=== PATIENT | male | born 1955 | race Caucasian/White ===

== ENCOUNTER 2017-03-02 12:28 | Emergency (ER) | payer MEDICARE, OTHER ==
[2017-03-02 12:29] VITALS: BMI 31.9
[2017-03-02] MEDS ORDERED: Iohexol 240 (50 ml) PO STA (13:32)
[2017-03-02] MEDS ORDERED: Sodium Chloride 0.9% 1,000 ML IV ONE (13:32)
[2017-03-02] MEDS ORDERED: Morphine 4 MG/ML VIAL ONE (13:40)
[2017-03-02] MEDS ORDERED: Iohexol 240 (50 ml) ONE (13:40)
[2017-03-02] MEDS ORDERED: Sodium Chloride 0.9% 1,000 ML ONE (13:41)
--- NOTE | 2017-03-02 13:51 | C.PDOC ---
History Of Present Illness 61-year-old male, presents to the emergency department with complaints of 2-day duration of intermittent headache, that is described as a sharp electric-shock like pain to the right side of his head. Patient states he is worried because she stopped taking her blood pressure meds. Patient notes that he checked her pressure and it was high. No headache at present. No shortness of breath or chest pain. Patient notes that he stopped taking meds due to palpitations, but did not mention this to his doctor. No other complaints at this time. Time Seen by Provider: 03/02/17 13:24 Chief Complaint (Nursing): Abdominal Pain History Per: Patient History/Exam Limitations: no limitations Past Medical History Reviewed: Historical Data, Nursing Documentation, Vital Signs Vital Signs: Last Vital Signs Temp 98 F 03/02/17 17:40 Pulse 60 03/02/17 17:40 Resp 18 03/02/17 17:40 BP 135/86 03/02/17 17:40 Pulse Ox 99 03/02/17 19:42 - Medical History PMH: Arthritis, Back Problems, Diverticulitis, HTN, Hypercholesterolemia, Malignancy (PROSTATE CANCER), TIA Surgical History: Endoscopy - [facility] Procedures INTRAVASCULAR PRESSURE MEASUREMENT OF CORONARY ARTERIES (07/29/14) LEFT HEART CARDIAC CATH (07/14/14) LT HEART ANGIOCARDIOGRAM (07/29/14) Family History: States: No Known Family Hx - Social History Hx Tobacco Use: No Hx Alcohol Use: No Hx Substance Use: No Review Of Systems Except As Marked, All Systems Reviewed And Found Negative. Constitutional: Negative for: Fever, Chills Cardiovascular: Negative for: Chest Pain Respiratory: Negative for: Shortness of Breath Gastrointestinal: Negative for: Nausea, Vomiting Neurological: Positive for: Headache. Negative for: Weakness, Numbness, Dizziness Physical Exam - Physical Exam Appears: Non-toxic, No Acute Distress Skin: Warm, Dry, No Rash Head: Atraumatic, Normacephalic Eye(s): bilateral: Normal Inspection, PERRL, EOMI Nose: Normal Oral Mucosa: Moist Lips: Normal Appearing Neck: Normal ROM Cardiovascular: Rhythm Regular, No Murmur Respiratory: Normal Breath Sounds Gastrointestinal/Abdominal: Soft, No Tenderness Extremity: Normal ROM Neurological/Psych: Oriented x3, Normal Speech ED Course And Treatment - Laboratory Results Result Diagrams: 03/02/17 13:52 03/02/17 13:52 O2 Sat by Pulse Oximetry: 99 - CT Scan/US abd Other Rad Studies (CT/US): Radiology Report Reviewed CT/US Interpretation: IMPRESSION: Findings consistent with acute diverticulitis of the left colon. Interval development of lytic lesion at L5 measures approximately 6 mm. Additional new faintly sclerotic foci are noted throughout the spine including L4, L2, T12, etc. In this patient with absent prostate gland, correlate with medical history and nuclear medicine bone scan in order to assess for metastatic disease. Enlarged retroperitoneal and to lesser extent mediastinal lymph nodes. Periaortic lymph nodes measure up to 14 mm in short axis. Additional incidental findings as above. Disposition - Disposition Disposition: HOME/ ROUTINE Disposition Time: 17:18 Condition: GOOD Additional Instructions: Follow up with Pcp REturn to the ED for any new or worsening symptoms Stop present abx start new ones in am Prescriptions: Ciprofloxacin [Cipro] 1 tab PO BID #14 tab metroNIDAZOLE [Flagyl] 1 tab PO BID #14 tab oxyCODONE/Acetaminophen [Percocet 5/325 mg Tab] 1 tab PO Q4H PRN #15 tab PRN Reason: .severe pain Instructions: Diverticulitis (ED) - Clinical Impression Clinical Impression: Abdominal pain, Diverticulitis - Scribe Statement The provider has reviewed the documentation as recorded by the Jyoti Velazco All medical record entries made by the Jyoti were at my direction and personally dictated by me. I have reviewed the chart and agree that the record accurately reflects my personal performance of the history, physical exam, medical decision making, and the department course for this patient. I have also personally directed, reviewed, and agree with the discharge instructions and disposition.
[2017-03-02 14:03] LABS: BASO # 0.2 K/uL (0.0-0.2); EOS # 0.1 K/uL (0.0-0.7); EOS % 1.5 % (0.0-4.0); HEMATOCRIT 42.6 % (35.0-51.0); LYMPH % 11.9 % (20.0-40.0); MEAN CELL VOLUME 83.8 fL (80.0-94.0); MEAN CORPUSCULAR HEMOGLOBIN 27.6 pg (27.0-31.0); MEAN PLATELET VOLUME 9.8 fL (7.2-11.7); MONO # 0.6 K/uL (0.0-0.8); NRBC % 0.1 % (0.0-2.0); RED CELL DISTRIBUTION WIDTH 12.4 % (11.5-14.5); WHITE BLOOD COUNT 8.6 K/uL (4.8-10.8)
[2017-03-02 14:10] LABS: CHLORIDE 99 mmol/L (98-107); POTASSIUM 4.5 mmol/L (3.6-5.2); SODIUM 134 mmol/L (132-148)
[2017-03-02 14:12] LABS: ALB/GLOB RATIO 1.5 (1.0-2.1); AST/SGOT 25 U/L (17-59); BILIRUBIN,TOTAL 0.7 mg/dL (0.2-1.3); CARBON DIOXIDE 25 mmol/L (22-30); GFR AFRICAN-AMERICAN > 60; TOTAL PROTEIN 7.1 g/dL (6.3-8.3)
[2017-03-02 14:13] LABS: ALKALINE PHOSPHATASE 76 U/L (38-126); ALT/SGPT 33 U/L (21-72); BLOOD UREA NITROGEN 17 mg/dL (9-20); CALCIUM 9.1 mg/dl (8.6-10.4); GLUCOSE,RANDOM 176 mg/dL (75-110)
[2017-03-02 14:38] LABS: RBC URINE < 1 /hpf (0-3); URINE BILIRUBIN NEGATIVE (NEGATIVE); URINE BLOOD NEGATIVE (NEGATIVE); URINE COLOR Yellow (YELLOW); URINE GLUCOSE (UA) NORMAL (Normal); URINE KETONE NEGATIVE (NEGATIVE); URINE LEUKOCYTE ESTERASE NEG Leu/uL (Negative); URINE PROTEIN NEGATIVE (NEGATIVE); URINE UROBILINOGEN NORMAL mg/dL (0.2-1.0); WBC URINE < 1 /hpf (0-5)
[2017-03-02] MEDS ORDERED: Iodixanol 320 MG/ML 100 ML BOTTLE IV ONE (15:20)
--- NOTE | 2017-03-02 16:49 | CT ---
PROCEDURE: CT Abdomen and Pelvis with oral and IV contrast. HISTORY: LLQ abd pain hx "tics" COMPARISON: CT abdomen and pelvis performed 08/28/14 TECHNIQUE: Contiguous axial images of the abdomen and pelvis. Oral and IV contrast was administered. Coronal and Sagittal reformats generated and reviewed. Contrast dose: 100 mL Visipaque Radiation dose: Total exam DLP = 774.16 mGy-cm. This CT exam was performed using one or more of the following dose reduction techniques: Automated exposure control, adjustment of the mA and/or kV according to patient size, and/or use of iterative reconstruction technique. FINDINGS: LOWER THORAX: Minimal bibasilar atelectasis. No visible pleural effusion or pneumothorax. LIVER: Hypoattenuation of the liver compatible with hepatic steatosis. Punctate calcification at the hepatic dome, likely granuloma. GALLBLADDER AND BILE DUCTS: Unremarkable. PANCREAS: Unremarkable. SPLEEN: 6 mm probable splenule. Otherwise unremarkable unenhanced appearance of the spleen. ADRENALS: Unremarkable. KIDNEYS AND URETERS: The kidneys enhance symmetrically. No hydronephrosis or obstructing renal calculus. 2 cm left renal cyst. Too small to characterize hypodense right and left renal lesions, statistically likely cysts. BLADDER: The urinary bladder appears unremarkable. REPRODUCTIVE: The prostate gland is not identified, presumably surgically removed. APPENDIX: The appendix appears within normal limits of caliber. No secondary signs of acute appendicitis. BOWEL: The stomach is nondistended. The bowel loops appear within normal limits of caliber without evidence of intestinal obstruction. Diverticulosis with associated inflammatory changes and wall thickening of the left colon consistent with acute diverticulitis. PERITONEUM: No significant free fluid. No definite free air. LYMPH NODES: Enlarged periaortic and mediastinal lymph nodes. Periaortic lymph nodes measuring up to 14 mm in short axis. VASCULATURE: No aortic aneurysm. BONES: Degenerative changes of the spine. Lytic lesion at L5 measures approximately 6 mm. Additional faintly sclerotic foci are noted throughout the spine including L4, L2, T12, etc. In this patient with absent prostate gland, correlate with medical history and nuclear medicine bone scan in order to assess for metastatic disease. OTHER FINDINGS: None. IMPRESSION: Findings consistent with acute diverticulitis of the left colon. Interval development of lytic lesion at L5 measures approximately 6 mm. Additional new faintly sclerotic foci are noted throughout the spine including L4, L2, T12, etc. In this patient with absent prostate gland, correlate with medical history and nuclear medicine bone scan in order to assess for metastatic disease. Enlarged retroperitoneal and to lesser extent mediastinal lymph nodes. Periaortic lymph nodes measure up to 14 mm in short axis. Additional incidental findings as above.
[2017-03-02] MEDS ORDERED: Oxycodone/Acetaminophen 5/325 mg Tab PO STA (17:39)
[2017-03-02 17:40] VITALS: BP 135/86; PULSE 60; RESP 18; TEMP 98
[2017-03-02 17:43] VITALS: O2SAT 99
[2017-03-02] MEDS ORDERED: Oxycodone/Acetaminophen 5/325 mg Tab ONE (17:43)
--- NOTE | 2017-03-02 19:40 | C.PDOC ---
History Of Present Illness 61-year-old male, presents to the emergency department with complaints of abdominal pain. Patient states he has been experiencing left-lower quadrant abdominal pain that started two days ago. Pain is persistent in nature, and progressively worsening. States pain is unrelieved by naproxen and two doses of ABX. Patient notes he was diagnosed with diverticulitis, and has minor flare- ups over the years, that are usually relieved with abx. Denies nausea/vomiting, fevers, chills, shortness of breath or chest pain. No other complaints at this time. Patients last (non-bloody) bowel movement 2 days ago. Time Seen by Provider: 03/02/17 13:24 Chief Complaint (Nursing): Abdominal Pain History Per: Patient History/Exam Limitations: no limitations Onset/Duration Of Symptoms: Days Current Symptoms Are (Timing): Still Present Past Medical History Reviewed: Historical Data, Nursing Documentation, Vital Signs Vital Signs: Last Vital Signs Temp 98 F 03/02/17 17:40 Pulse 60 03/02/17 17:40 Resp 18 03/02/17 17:40 BP 135/86 03/02/17 17:40 Pulse Ox 99 03/02/17 19:50 - Medical History PMH: Arthritis, Back Problems, Diverticulitis, HTN, Hypercholesterolemia, Malignancy (PROSTATE CANCER), TIA Surgical History: Endoscopy - [facility] Procedures INTRAVASCULAR PRESSURE MEASUREMENT OF CORONARY ARTERIES (07/29/14) LEFT HEART CARDIAC CATH (07/14/14) LT HEART ANGIOCARDIOGRAM (07/29/14) Family History: States: No Known Family Hx - Social History Hx Tobacco Use: No Hx Alcohol Use: No Hx Substance Use: No Review Of Systems Except As Marked, All Systems Reviewed And Found Negative. Constitutional: Negative for: Fever, Chills Cardiovascular: Negative for: Chest Pain, Palpitations Respiratory: Negative for: Shortness of Breath Gastrointestinal: Positive for: Abdominal Pain. Negative for: Nausea, Vomiting Skin: Negative for: Rash Neurological: Negative for: Weakness, Numbness, Headache, Dizziness Physical Exam - Physical Exam Appears: Non-toxic, No Acute Distress Skin: Warm, Dry, No Rash Head: Atraumatic, Normacephalic Eye(s): bilateral: Normal Inspection Nose: Normal Oral Mucosa: Moist Neck: Normal ROM Cardiovascular: Rhythm Regular, No Murmur Respiratory: Normal Breath Sounds, No Accessory Muscle Use Gastrointestinal/Abdominal: Soft, Tenderness (LLQ) Extremity: Normal ROM Neurological/Psych: Oriented x3 ED Course And Treatment - Laboratory Results Result Diagrams: 03/02/17 13:52 03/02/17 13:52 O2 Sat by Pulse Oximetry: 99 Pulse Ox Interpretation: Normal - CT Scan/US abd Other Rad Studies (CT/US): Radiology Report Reviewed CT/US Interpretation: IMPRESSION: Findings consistent with acute diverticulitis of the left colon. Interval development of lytic lesion at L5 measures approximately 6 mm. Additional new faintly sclerotic foci are noted throughout the spine including L4, L2, T12, etc. In this patient with absent prostate gland, correlate with medical history and nuclear medicine bone scan in order to assess for metastatic disease. Enlarged retroperitoneal and to lesser extent mediastinal lymph nodes. Periaortic lymph nodes measure up to 14 mm in short axis. Additional incidental findings as above. Medical Decision Making Medical Decision Making: Pt feeling better post meds and eval abd continues soft CT c/w diverticulitis no perf or abscess Pt only started abx last night so trial of PO meds stilll indicated No fever white count of guarding Plan change to cipro/flag add pain meds PCP f/u (or return to the ED) Disposition - Disposition Disposition: HOME/ ROUTINE Disposition Time: 17:18 Condition: GOOD Additional Instructions: Follow up with Pcp REturn to the ED for any new or worsening symptoms Stop present abx start new ones in am Prescriptions: Ciprofloxacin [Cipro] 1 tab PO BID #14 tab metroNIDAZOLE [Flagyl] 1 tab PO BID #14 tab oxyCODONE/Acetaminophen [Percocet 5/325 mg Tab] 1 tab PO Q4H PRN #15 tab PRN Reason: .severe pain Instructions: Diverticulitis (ED) - Clinical Impression Clinical Impression: Abdominal pain, Diverticulitis - Scribe Statement The provider has reviewed the documentation as recorded by the Jyoti Velazco Provider Attestation: All medical record entries made by the Jyoti were at my direction and personally dictated by me. I have reviewed the chart and agree that the record accurately reflects my personal performance of the history, physical exam, medical decision making, and the department course for this patient. I have also personally directed, reviewed, and agree with the discharge instructions and disposition.
== END 2017-03-02 17:53 | disposition home or self-care (01) ==
LOC: C.ER 12:28
DX: K57.32 Diverticulitis of large intestine without perforation or abscess without bleeding (principal)
CPT/HCPCS: 74177; 80053; 81001; 85025; 96374; 96375; 99284; J2270; J2405; J7040; Q9966; Q9967